=== PATIENT | female | born 1985 | race Caucasian/White ===

== ENCOUNTER → 2020-11-18 | Day surgery (SDC) | payer OTHER ==
[~2020-11-18] VITALS: Ht 165.1 cm; Wt 65.0 kg
[~2020-11-18] MED LIST: CETI10TA74 PO; COLE1TAB PO; HYDROmorphone 2 MG/ML VIAL IVP PRN; IV RINGERS,LACTATED 1000ML 1,000 ML IV SCH; LIDOCAINE 2% PF 5 ML VIAL. ONE; MORPHINE SULFATE 2 MG/ML INJ. IVP PRN; ONDA4TAB7 PO; OXYC-325 PO; PROCHLORPERAZINE 10 MG/2 ML VIAL. IVP PRN; PROPOFOL 10 MG/ML (20ML) VIAL. IV ONE; [UNRECOGNIZED DRUG - CODE] PO; fentaNYL PF VIAL 100 MCG/2 ML VIAL IVP PRN
[2020-11-18 07:17] VITALS: BP 111/72
[2020-11-18 08:50] VITALS: BP 116/70
== END | disposition home or self-care (01) ==
LOC: ENDOS 06:53
PROVIDERS: ATTEND Internal Medicine Gastroenterology
DX: R10.13 Epigastric pain (principal); R63.4 Abnormal weight loss; K31.89 Other diseases of stomach and duodenum; K21.9 Gastro-esophageal reflux disease without esophagitis; F41.9 Anxiety disorder, unspecified; F32.9 Major depressive disorder, single episode, unspecified; F17.210 Nicotine dependence, cigarettes, uncomplicated; Z90.49 Acquired absence of other specified parts of digestive tract; Z98.890 Other specified postprocedural states; Z79.899 Other long term (current) drug therapy; Z72.89 Other problems related to lifestyle
CPT/HCPCS: 43239; 81025; J2704; 88305

== ENCOUNTER → 2020-11-23 | Outpatient (CLI) | payer OTHER ==
[2020-11-18 08:50] VITALS: BP 116/70
[~2020-11-23] MED LIST changes: -HYDROmorphone 2 MG/ML VIAL IVP PRN; -IV RINGERS,LACTATED 1000ML 1,000 ML IV SCH; -LIDOCAINE 2% PF 5 ML VIAL. ONE; -MORPHINE SULFATE 2 MG/ML INJ. IVP PRN; -PROCHLORPERAZINE 10 MG/2 ML VIAL. IVP PRN; -PROPOFOL 10 MG/ML (20ML) VIAL. IV ONE; -fentaNYL PF VIAL 100 MCG/2 ML VIAL IVP PRN
--- NOTE | 2020-11-23 13:28 | RAD ---
EXAM: Nuclear gastric emptying scan. HISTORY: Abnormal weight loss. COMPARISON: None. TECHNIQUE: Serial static images were obtained over the stomach following oral administration of 2 mCi 99m-Tc sulfur colloid. FINDINGS: The stomach empties into the small bowel without evidence of reflux in the area of the esop hagus. Gastric retention percents: 1 hour 35% (normal range 34.8-91%) 2 hour 26% (normal range 2.7-60%) 3 hour 13% (normal range 0.5-28%) 4 hour 1% (normal range 0-10%) The estimated time for half emptying of gastric contents, i.e. 'gastric emptying time' is 80 minutes (normal is 66 +/- 22 minutes). IMPRESSION: Normal gastric emptying. Electronically signed by: Enedelia Dean MD (11/23/2020 1:25 PM) [id number]
== END ==
LOC: NM 08:42
PROVIDERS: ATTEND Internal Medicine Gastroenterology
DX: R63.4 Abnormal weight loss (principal)
CPT/HCPCS: 78264; A9541